=== PATIENT | female | born 1940 | race Caucasian/White ===

== ENCOUNTER 2019-08-27 19:24 | Emergency (ER) | payer MEDICARE ==
[~2019-08-27] VITALS: Ht 175.3 cm; Wt 81.6 kg
[2019-08-27 19:34] VITALS: BP 149/64
[2019-08-27] MEDS ORDERED: traMADol 50 MG TAB PO ONE (19:45)
[2019-08-27 20:17] LABS: BASOPHILS % (AUTO) 0.8 % (0.0-2.0); EOSINOPHILS # (AUTO) 0.1 K/uL (0-0.4); EOSINOPHILS % (AUTO) 2.6 % (0.0-4.0); HEMATOCRIT 32.7 % (36-48); HEMOGLOBIN 10.9 g/dL (12.0-16.0); LYMPHOCYTES # (AUTO) 1.5 K/uL (2.5-16.5); LYMPHOCYTES % (AUTO) 30.1 % (20.5-51.1); MEAN CORPUSCULAR HEMOGLOBIN 34 pg (27-31); MEAN CORPUSCULAR HGB CONC 33 g/dL (33-37); MEAN CORPUSCULAR VOLUME 101.7 fL (80-94); MONOCYTES # (AUTO) 0.5 K/uL (0.8-1.0); MONOCYTES % (AUTO) 9.9 % (1.7-9.3); NEUTROPHILS # (AUTO) 2.9 K/uL (1.8-7.7); NEUTROPHILS % (AUTO) 56.6 % (42.2-75.2); PLATELET COUNT (AUTO) 265 K/uL (140-450); RED BLOOD CELL COUNT(AUTO) 3.22 MIL/uL (4.20-5.40); RED CELL DISTRIBUTION WIDTH 14.4 % (11.6-13.7); WHITE BLOOD COUNT (AUTO) 5.1 K/uL (4.8-10.8)
[2019-08-27 20:31] LABS: ALBUMIN 3.4 g/dL (3.4-5.0); ANION GAP 9.9 (8-16); ASPARTATE AMINOTRANSFERASE 12 U/L (15-37); CHLORIDE 102 mmol/L (98-107); CREATININE 1.6 mg/dL (0.6-1.3); GLUCOSE 108 mg/dL (74-106); POTASSIUM 3.9 mmol/L (3.5-5.1); SODIUM SERUM 138 mmol/L (136-145); TOTAL BILIRUBIN 0.4 mg/dL (0.0-1.0); UREA NITROGEN, BLOOD 43 mg/dL (7-18)
[2019-08-27 20:41] LABS: URIC ACID 9.2 mg/dL (2.6-7.2)
[2019-08-27] MEDS ORDERED: INDOMETHACIN 25 MG CAP PO ONE (20:45)
[2019-08-27] MEDS ORDERED: CEPHALEXIN 500 MG CAP PO ONE (20:45)
[2019-08-27] MEDS ORDERED: COLCHICINE 0.6 MG TAB PO ONE (20:45)
[2019-08-27] MEDS ORDERED: ACETAMINOPHEN 325 MG TAB PO ONE (20:50)
[2019-08-27 21:25] VITALS: BP 146/66
== END 2019-08-27 21:25 | disposition home or self-care (01) ==
LOC: MED 19:24
DX: L03.115 Cellulitis of right lower limb (principal); M10.9 Gout, unspecified; I10 Essential (primary) hypertension; N28.9 Disorder of kidney and ureter, unspecified; R56.9 Unspecified convulsions
CPT/HCPCS: 36415; 73630; 80053; 84550; 85025; 99284; Q0092

== ENCOUNTER 2021-03-18 03:40 | Emergency (ER) | payer MEDICARE ==
[~2021-03-18] VITALS: Ht 175.3 cm; Wt 81.6 kg
[2021-03-18 03:40] VITALS: BP 130/74
--- NOTE | 2021-03-18 03:40 | NUR ---
BIBA TO BED 8 WITH C/O VAGINAL BLEEDING. PT STATES SHE HAS A CYST THAT BLEEDS. TONIGHT IT HAS BEEN BLEEDING MORE AND PT SAID HER BED SHEETS WERE SATURATED WITH BLOOD. IS AWAKE, ALERT AND ORIENTED. SKIN IS WARM AND DRY. PMH : EPILEPSY, HTN NKDA
--- NOTE | 2021-03-18 03:40 | NUR ---
PT DORETHA BLS. TAKEN TO BED 8
--- NOTE | 2021-03-18 03:57 | NUR ---
Dr. López examining patient.
[2021-03-18] MEDS ORDERED: HYDROCORTISONE 1% CRM 30 GM TUBE TP STA (04:12)
[2021-03-18] MEDS ORDERED: BACITRACIN OINT 500 UNITS/GM PKT TP ONE (04:15)
[2021-03-18] MEDS ORDERED: HYDROcodone/APAP 5/325 MG 1 TAB TAB PO ONE (04:15)
--- NOTE | 2021-03-18 04:15 | NUR ---
PELVIC EXAM DONE BY DR. ALEJANDRO, CHAPERONED BY ME. SKIN TAG AND EXCORIATION NOTED TO LEFT BUTTOCK AREA. MUCH FACIAL GRIMACING NOTED DURING EXAM
--- NOTE | 2021-03-18 04:20 | NUR ---
ASSISTED ONTO BEDPAN, VOIDED CLEAR CRYSTAL URINE
--- NOTE | 2021-03-18 04:55 | NUR ---
Patient discharged with v/s stable. Written and verbal after care instructions given and explained. Patient verbalized understanding. Ambulatory with steady gait. All questions addressed prior to discharge. Advised to follow up with PMD.
[2021-03-18 05:07] VITALS: BP 124/68
== END 2021-03-18 04:55 | disposition home or self-care (01) ==
LOC: MED 03:40
DX: L91.8 Other hypertrophic disorders of the skin (principal); I10 Essential (primary) hypertension; Z87.448 Personal history of other diseases of urinary system; Z86.69 Personal history of other diseases of the nervous system and sense organs; Z98.890 Other specified postprocedural states
CPT/HCPCS: 99284